=== PATIENT | female | born 1975 | race Caucasian/White ===

== ENCOUNTER 2016-09-26 20:42 | Emergency (ER) | payer MEDICARE, OTHER | END 2016-09-26 21:26 | disposition home or self-care (01) | LOC: ER1 20:42 | DX: K04.7 Periapical abscess without sinus (principal); J44.9 Chronic obstructive pulmonary disease, unspecified; F17.210 Nicotine dependence, cigarettes, uncomplicated; Z88.8 Allergy status to other drugs, medicaments and biological substances | CPT/HCPCS: 99282 ==

== ENCOUNTER → 2016-10-11 | Outpatient (CLI) | payer MEDICARE, OTHER | LOC: KOH-I 13:15 | DX: I82.432 Acute embolism and thrombosis of left popliteal vein (principal); R60.0 Localized edema | CPT/HCPCS: 93971 ==